=== PATIENT | male | born 1985 | race Caucasian/White ===

== ENCOUNTER 2019-09-12 11:32 | Emergency (ER) | payer OTHER ==
--- NOTE | 2019-09-12 12:04 | EDM.PDOC ---
<Huey Mendoza - Last Filed: 09/12/19 12:32> ED HPI GENERAL MEDICAL PROBLEM - General Chief Complaint: Lower Extremity Injury/Pain Stated Complaint: HURT RT FOOT Time Seen by Provider: 09/12/19 11:35 - Related Data Allergies Allergy/AdvReac Type Severity Reaction Status Date / Time No Known Allergies Allergy Verified 09/12/19 11:45 Home Meds: Home Meds . [No Known Home Meds] 09/12/19 [History] Review of Systems - Review of Systems Review Of Systems: ROS reveals no pertinent complaints other than HPI. ED EXAM, GENERAL - Physical Exam Exam: See Below (The dictation) Course - Vital Signs Last Recorded V/S: Last Vital Signs Temp 97.0 F 09/12/19 11:38 Pulse 90 09/12/19 12:40 Resp 18 09/12/19 12:40 BP 110/74 09/12/19 12:40 Pulse Ox 98 09/12/19 12:40 Departure - Departure Time of Disposition: 12:32 Disposition: Home, Self-Care 01 Condition: Good Clinical Impression: Foot injury - Discharge Information Instructions: Foot Sprain Referrals: PCP,Not In Area [Primary Care Provider] - Forms: ED Department Discharge Additional Instructions: The following information is given to patients seen in the emergency department who are being discharged to home. This information is to outline your options for follow-up care. We provide all patients seen in our emergency department with a follow-up referral. The need for follow-up, as well as the timing and circumstances, are variable depending upon the specifics of your emergency department visit. If you don't have a primary care physician on staff, we will provide you with a referral. We always advise you to contact your personal physician following an emergency department visit to inform them of the circumstance of the visit and for follow-up with them and/or the need for any referrals to a consulting specialist. The emergency department will also refer you to a specialist when appropriate. This referral assures that you have the opportunity for followup care with a specialist. All of these measure are taken in an effort to provide you with optimal care, which includes your followup. Under all circumstances we always encourage you to contact your private physician who remains a resource for coordinating your care. When calling for followup care, please make the office aware that this follow-up is from your recent emergency room visit. If for any reason you are refused follow-up, please contact the [facility] emergency department at and asked to speak to the emergency department charge nurse. Crutches as directed Motrin/Tylenol as directed follow-up primary medical doctor return as needed as discussed <Munir Jauregui - Last Filed: 09/12/19 14:07> ED HPI GENERAL MEDICAL PROBLEM - General Source of Information: Reports: Patient History Limitations: Reports: No Limitations - History of Present Illness INITIAL COMMENTS - FREE TEXT/NARRATIVE: HISTORY AND PHYSICAL: History of present illness: 34-year-old male presents to ER complaining of right foot pain after falling out of his truck 2 days ago. Patient reports that he missed a step when climbing out of his truck and then injured his right foot. He does report that he suffered a fracture of his right foot in the past which healed without any surgical intervention. Patient reports that he was initially unable to bear weight, however, over the past 2 days has seen mild improvement and is able to limp around gingerly now. Patient described the pain as being throbbing and achy in nature and rated as a 8/10 on pain scale. There is no radiation of the pain. Patient denies having any fevers, dizziness, blurry vision, sore throat, cough, shortness of breath, chest pain, nausea, vomiting, diarrhea, numbness or tingling. Review of systems: As per history of present illness and below otherwise all systems reviewed and negative. Past medical history: As per history of present illness and as reviewed below otherwise noncontributory. Surgical history: As per history of present illness and as reviewed below otherwise noncontributory. Social history: No reported history of drug or alcohol abuse. Family history: As per history of present illness and as reviewed below otherwise noncontributory. Physical exam: HEENT: Atraumatic, normocephalic, mucous membranes moist, throat clear, neck supple, nontender, trachea midline. Lungs: Clear to auscultation. Heart: S1S2, regular. Abdomen: Soft, nondistended, nontender. normal bowel sounds. Pelvis: Deferred. Genitourinary: Deferred. Rectal: Deferred. Extremities: Right Foot: - edema and mild bruising noted over right foot inferior to lateral malleolus - generalized tenderness to palpation elicited over lateral aspect of foot - full ROM but elicits pain - neurovascularly intact Neuro: Awake, alert, oriented. Motor and sensory unremarkable throughout. Exam nonfocal. Diagnostics: R foot xray Plan: Patient care transferred to ER provider Dr. Mendoza at 12:10 PM. Definitive disposition and diagnosis as appropriate pending reevaluation and review of above. R foot Pain Score (Numeric/FACES): 8 Past Medical History - Past Health History Medical/Surgical History: Denies Medical/Surgical History Social & Family History - Tobacco Use Smoking Status *Q: Never Smoker - Caffeine Use Caffeine Use: Reports: None - Recreational Drug Use Recreational Drug Use: No
--- NOTE | 2019-09-12 12:56 | CR ---
Right foot: Three views of the right foot were obtained. Comparison: No previous foot exam. Joint spaces are maintained. No fracture, dislocation or other bony abnormality is seen. Small cyst is noted within the calcaneus which is felt to be incidental. Impression: Nothing acute is appreciated on right foot exam. Diagnostic code #2 MTDD
== END 2019-09-12 12:40 | disposition home or self-care (01) ==
LOC: MW.ED 11:32
DX: S90.31XA Contusion of right foot, initial encounter (principal); V58.4XXA Person boarding or alighting a pick-up truck or van injured in noncollision transport accident, initial encounter
CPT/HCPCS: 73630-26-RT; 73630-RT; 99283-25

== ENCOUNTER 2019-09-25 00:27 | Emergency (ER) | payer SELFPAY ==
--- NOTE | 2019-09-25 00:48 | EDM.PDOC ---
ED HPI GENERAL MEDICAL PROBLEM - General Chief Complaint: Behavioral/Psych Stated Complaint: PANIC ATTACK Time Seen by Provider: 09/25/19 00:45 - History of Present Illness INITIAL COMMENTS - FREE TEXT/NARRATIVE: HISTORY AND PHYSICAL: History of present illness: Age 34-year-old male presents a concern of anxiety patient has long history of this and also long history of chronic pain syndrome. Review of systems: As per history of present illness and below otherwise all systems reviewed and negative. Past medical history: As per history of present illness and as reviewed below otherwise noncontributory. Surgical history: As per history of present illness and as reviewed below otherwise noncontributory. Social history: No reported history of drug or alcohol abuse. Family history: As per history of present illness and as reviewed below otherwise noncontributory. Physical exam: HEENT: Atraumatic, normocephalic, pupils reactive, negative for conjunctival pallor or scleral icterus, mucous membranes moist, throat clear, neck supple, nontender, trachea midline. Lungs: Clear to auscultation, breath sounds equal bilaterally, chest nontender. Heart: S1S2, regular, negative for clicks, rubs, or JVD. Abdomen: Soft, nondistended, nontender. Negative for masses or hepatosplenomegaly. Negative for costovertebral tenderness. Pelvis: Stable nontender. Genitourinary: Deferred. Rectal: Deferred. Extremities: Atraumatic, negative for cords or calf pain. Neurovascular unremarkable. Neuro: Awake, alert, oriented. Cranial nerves II through XII unremarkable. Cerebellum unremarkable. Motor and sensory unremarkable throughout. Exam nonfocal. Diagnostics: None Therapeutics: None Impression: #1 history of anxiety #2 medical screening exam Definitive disposition and diagnosis as appropriate pending reevaluation and review of above. - Related Data Allergies Allergy/AdvReac Type Severity Reaction Status Date / Time No Known Allergies Allergy Verified 09/25/19 00:34 Home Meds: Home Meds Hydrocodone/Acetaminophen [Hydrocodon-Acetaminoph 7.5-325] 1 each PO ASDIRECTED 09/25/19 [History] Past Medical History - Past Health History Medical/Surgical History: Denies Medical/Surgical History Neurological History: Reports: Headaches, Chronic - Infectious Disease History Infectious Disease History: Reports: None Social & Family History - Family History Family Medical History: Noncontributory - Tobacco Use Smoking Status *Q: Never Smoker Second Hand Smoke Exposure: No - Caffeine Use Caffeine Use: Reports: Coffee - Recreational Drug Use Recreational Drug Use: No ED ROS GENERAL - Review of Systems Review Of Systems: ROS reveals no pertinent complaints other than HPI. ED EXAM, GENERAL - Physical Exam Exam: See Below (See dictation) Course - Vital Signs Last Recorded V/S: Last Vital Signs Temp 36.1 C 09/25/19 00:34 Pulse 86 09/25/19 00:34 Resp 20 09/25/19 00:34 BP 147/86 H 09/25/19 00:34 Pulse Ox 97 09/25/19 00:34 Departure - Departure Time of Disposition: 00:47 Disposition: Home, Self-Care 01 Condition: Good Clinical Impression: Anxiety, Encounter for medical screening examination - Discharge Information Referrals: PCP,None [Primary Care Provider] - Additional Instructions: The following information is given to patients seen in the emergency department who are being discharged to home. This information is to outline your options for follow-up care. We provide all patients seen in our emergency department with a follow-up referral. The need for follow-up, as well as the timing and circumstances, are variable depending upon the specifics of your emergency department visit. If you don't have a primary care physician on staff, we will provide you with a referral. We always advise you to contact your personal physician following an emergency department visit to inform them of the circumstance of the visit and for follow-up with them and/or the need for any referrals to a consulting specialist. The emergency department will also refer you to a specialist when appropriate. This referral assures that you have the opportunity for followup care with a specialist. All of these measure are taken in an effort to provide you with optimal care, which includes your followup. Under all circumstances we always encourage you to contact your private physician who remains a resource for coordinating your care. When calling for followup care, please make the office aware that this follow-up is from your recent emergency room visit. If for any reason you are refused follow-up, please contact the [facility] emergency department at and asked to speak to the emergency department charge nurse. Follow-up primary medical doctor as discussed return as needed as discussed
== END 2019-09-25 00:55 | disposition home or self-care (01) ==
LOC: MW.ED 00:27
DX: Z04.89 Encounter for examination and observation for other specified reasons (principal); F41.9 Anxiety disorder, unspecified
CPT/HCPCS: 99282; 99283